=== PATIENT | male | born 1980 | race Caucasian/White ===

== ENCOUNTER 2023-11-12 23:09 | Emergency (ER) | payer OTHER ==
[2023-11-12] MEDS: diphenhydrAMINE 25 MG Cap PO ONE (23:57)
[2023-11-12] MEDS: Clobetasol 0.05% Crm 30 GM Tube TOP SCH (23:58)
[2023-11-12] MEDS ORDERED: Clobetasol 0.05% Crm 30 GM Tube ONE (23:58)
== END 2023-11-13 00:05 | disposition home or self-care (01) ==
LOC: VM.ED 23:09
DX: L30.9 Dermatitis, unspecified (principal)
CPT/HCPCS: 99282; 99283; A9270-GY